=== PATIENT | male | born 1990 | race Two or more races ===

== ENCOUNTER 2022-05-21 10:01 | Emergency (ER) | payer OTHER, SELFPAY ==
[2022-05-21 10:05] VITALS: BP 131/74; PULSE 68; RESP 16; TEMP 36.7; O2SAT 100; BMI 21.7
--- NOTE | 2022-05-21 10:36 | ED_ITS ---
HPI - Wound/Laceration General Chief Complaint: Wound/Laceration Stated Complaint: Ear lac/Work inj Time Seen by Provider: 05/21/22 10:09 Source: patient Mode of arrival: ambulatory Limitations: no limitations History of Present Illness HPI narrative: 31-year-old male previously healthy here with laceration to the right ear. Patient reports he was working. 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 Patient tells me that he tripped and the hook caught his right ear and the patient fell down with all of his weight causing the hook to rip his right ear. Tetanus status unknown. No head injury or loss of consciousness Related Data Allergies Allergy/AdvReac Type Severity Reaction Status Date / Time No Known Allergies Allergy Verified 05/21/22 10:04 Review of Systems Review of Systems: Yes all other systems are reviewed and are negative Constitutional: Constitutional: Reports no additional constitutional complaints, Denies body ache(s), Denies chills, Denies fever(s), Denies headache(s) and Denies weakness Eyes: Eyes: Reports no additional eye complaints and Denies change in vision ENT: Reports system reviewed and no additional complaints, except as documented, Denies dizziness, Denies headache(s), Denies nasal congestion, Denies nasal discharge and Denies neck pain Cardiovascular: Cardiovascular: Reports no additional cardiovascular complaints, Denies chest pain, Denies leg edema and Denies dyspnea Respiratory: Respiratory: Reports no additional respiratory complaints, Denies cough and Denies dyspnea Gastrointestinal: Gastrointestinal: Reports no additional gastrointestinal complaints, Denies abdominal pain, Denies diarrhea, Denies nausea and Denies vomiting Genitourinary: Genitourinary: Denies urinary incontinence Musculoskeletal: Musculoskeletal: Reports no additional musculoskeletal complaints, Denies back pain, Denies arthralgias, Denies joint swelling, Denies neck pain, Denies numbness and Denies tingling Integumentary/Breasts: Skin/Breast: Reports system reviewed and no additional complaints, except as docu and Denies rash Neurologic: Reports system reviewed and no additional complaints, except as documented, Denies Abnormal speech present, Denies dizziness, Denies headache(s), Denies numbness, Denies tingling and Denies weakness [facility] Past Medical History Attestation statement: The following information was validated with the patient. Source: old records reviewed and nursing notes reviewed Social History Social History Advance Directives: No Advance Directives Information Provided: No Physical Exam Vital Signs: Vital Signs: Last Vital Signs Temp 98.1 F 05/21/22 10:05 Pulse 68 05/21/22 10:05 Resp 16 05/21/22 10:05 BP 131/74 05/21/22 10:05 Pulse Ox 100 05/21/22 10:05 O2 Del Method 05/21/22 10:05 BMI result Body Mass Index 21.7 Const: General: cooperative, healthy appearing, comfortable and no acute distress Orientation/consciousness: patient oriented x3 Limitations: no limitations HEENT: Head: Yes normal to inspection Ears: hearing grossly normal bilaterally Outer ear/TM images: 1. Laceration with cartilage involved. Laceration is not through and through 5cm 2. 2cm through the pinna General nose exam: Normal external nose present Face and sinus: Yes normal facial exam Mouth: Normal oral and palatal mucosa present Throat: Yes posterior oropharynx normal Eyes: General: appearance normal, both eyes and all related structures Pupils: Equal, round and reactive pupils present Neck: Neck: Yes normal visual inspection Chest: Chest palpation & inspection: normal inspection of the chest Resp: Effort & Inspection: normal respiratory effort Auscultation: clear to auscultation bilaterally Cardio: Rate: regular rate Rhythm: regular rhythm Peripheral pulses: Peripheral pulses 2+ throughout GI: Inspection: Yes normal to inspection Palpation (GI): Soft to palpation and nontender Auscultation: normal bowel sounds Back/Spine/Pelvis: Thoracic/Lumbar Spine: thoracic and lumbar spine normal to inspection Skin: General skin exam: no rashes or lesions noted Neuro: General: patient oriented x3, no focal motor deficits and normal s ensation to monofilament Cranial nerves: Yes Equal, round and reactive pupils present Cognition (Neuro): normal cognition Speech: No Abnormal speech present Gait exam (Neuro): Normal gait present Motor exam (neuro): 5/5 motor strength present throughout Extrem: General: Yes normal to inspection Course Course Course Narrative: The auricular nerve block was performed by Dr. Lauren. Wound was repaired w/ Nataly FAIR. See procedure note Bleeding was controlled on discharge. No auricular hematoma noted. Reviewed wound care at home. Reviewed worrisome signs and symptoms when to return to the emergency room. Comfortable plan for discharge home. Medications Administered Discontinued Medications Generic Name Dose Route Start Last Admin Trade Name Rajni PRN Reason Stop Dose Admin Diphtheria/Tetanus/Acell Pertussis 0.5 ml 05/21/22 10:20 05/21/22 10:41 Diphth,Pertus(Acell),Tet Adult 0.5 Ml Syringe IM 05/21/22 10:21 0.5 ml .ONCE ONE Administration Lidocaine HCl 2 ml 05/21/22 10:20 05/21/22 10:42 Lidocaine Hcl 1 % Mpf 2 Ml Vial INFILTRATI 05/21/22 10:21 2 ml ONCE ONE Administration MDM - Wound/Laceration MDM Narrative Medical decision making narrative: 31-year-old male here with laceration to the right ear which occurred while working. See procedure note for wound repair. Will require auricular block. Give tetanus Medical Records Attestation: I reviewed the patient's medical records. Lab Data Attestation: I reviewed the patient's lab results. Procedures Laceration Laceration 1: Site: other (ear) Side (If applicable): right Size (cm): 7 Description: linear Depth: simple, single layer Local Anesthetic: other anesthetic (auricular block) Amount of anesthesia used (mL): 5 Pre-repair: wound explored and irrigated extensively Skin layer closed with: vicryl Size (cm): 6-0 Number of sutures: 12 Technique: simple, interrupted Nerve Block Nerve Block 1: Time out performed: Yes Amount of anesthesia used (mL): 5 Nerve Blocks: other (auricular ) Procedure Successful: Yes Patient Tolerated Procedure: well Complications: none Discharge Plan Discharge Clinical Impression: Laceration Patient Disposition: Home, Self-Care Instructions: Laceration (ED) Additional Instructions: sutures out in 7 days you have 12 sutures Stand Alone Forms: Work/School Release Interventions: ED Discharge Assessment Last Done: 05/21/22 12:18 Discharge Date/Time: 05/21/22 12:18
[2022-05-21] MEDS: Diphth,Pertus(ACell),Tet Adult 0.5 ML SYRINGE IM (10:41)
[2022-05-21] MEDS: Lidocaine HCl 1 % MPF 2 ML VIAL INFILTRATI (10:42)
--- NOTE | 2022-05-21 12:18 | PC.NURSE ---
pt tolerated sutures well, nad
== END 2022-05-21 12:18 | disposition home or self-care (01) ==
PROVIDERS: Emergency Provider Emergency Medicine
DX: S01.311A Laceration without foreign body of right ear, initial encounter (principal); Y29.XXXA Contact with blunt object, undetermined intent, initial encounter; Y93.9 Activity, unspecified; Y92.9 Unspecified place or not applicable; Y99.9 Unspecified external cause status
CPT/HCPCS: 12014; 90471; 90715; 99282; 99284

== ENCOUNTER 2022-05-28 10:05 | Emergency (ER) | payer OTHER, SELFPAY ==
[2022-05-28 10:29] VITALS: BP 128/71; PULSE 73; RESP 16; TEMP 36.6; O2SAT 99; BMI 21.7
--- NOTE | 2022-05-28 10:51 | ED_ITS ---
HPI - Recheck/Abnormal Lab/Rx General Chief Complaint: Wound/Laceration Stated Complaint: Suture Removal Time Seen by Provider: 05/28/22 10:34 Source: patient Mode of arrival: ambulatory Limitations: no limitations History of Present Illness complaint: suture/staple removal Initial visit (ago): day(s) (7) Initial visit for: laceration Returns today for: staple/stitch removal Symptoms since prior visit: no new symptoms Context: planned re-check Associated symptoms: none Related Data Allergies Allergy/AdvReac Type Severity Reaction Status Date / Time No Known Allergies Allergy Verified 05/21/22 10:04 Review of Systems Review of Systems: Constitutional : No Fever, No Chills, Cardiovascular : No Chest Pain, No SOB Respiratory : No Dyspnea Gastrointestinal : No abdominal pain Musculoskeletal : No Joint Swelling Skin : positive healing skin laceration, No Foreign bodies, No rash, No surrounding erythema Neuro : No Weakness, No Numbness/tingling Psych : No SI/HI/thoughts of self injury Yes all other systems are reviewed and are negative [facility] Past Medical History Attestation statement: The following information was validated with the patient. Source: old records reviewed and nursing notes reviewed Social History Social History Advance Directives: No Physical Exam Vital Signs: Vital Signs: Last Vital Signs Temp 98 F 05/28/22 10:29 Pulse 73 05/28/22 10:29 Resp 16 05/28/22 10:29 BP 128/71 05/28/22 10:29 Pulse Ox 99 05/28/22 10:29 O2 Del Method 05/28/22 10:29 BMI result Body Mass Index 21.7 vital signs have been reviewed as normal and appeared to be correct. Blood pressure normal Heart rate normal. Respiration rate normal. Temperature normal. Oxygen saturation normal. Appearance: Alert. Oriented X3. No acute distress. Head: Normal external exam. Normocephalic. Atraumatic. Eyes: PERRLA. EOMI. Conjunctiva and sclera normal. Eyelids normal. ENT: Pharynx normal. Uvula midline. Moist mucous membranes. Neck: Normal inspection. Neck supple. FROM. CVS: Normal heart rate and rhythm. Respiratory: No respiratory distress. Painless inspiration. Skin: Skin warm and dry. Normal skin color. Normal skin turgor. To the right ear patient has well-healing laceration with [address] with overlying scabbing. No surrounding erythema/streaking/induration/fluctuance or signs of infection noted. No additional rashes/lesions/lacerations noted. Extremities: Extremities exhibit normal range of motion. Extremities nontender. Neuro: Oriented X 3. No motor deficit. No sensory deficit. Reflexes normal. Normal steady gait. No focal neuro deficits noted. Course Course Course Narrative: Patient now status post suture removal. Twelve sutures were removed. No signs of infection. Patient did have some dehiscence otherwise no other complications. Patient tolerated procedure well. Will DC home with instructions return if any new or worsening symptoms to follow up with primary care provider. Patient understands agrees with this plan. MDM - Recheck/Abnormal Lab/Rx Medical Records Attestation: I reviewed the patient's medical records. Discharge Plan Discharge Clinical Impression: Visit for suture removal, Wound dehiscence Patient Disposition: Home, Self-Care Instructions: Stitches Removal (ED) Referrals: Physician,Unknown J [Primary Care Provider] - 2 days (your pcp) Stand Alone Forms: Work/School Release
== END 2022-05-28 11:05 | disposition home or self-care (01) ==
PROVIDERS: Emergency Provider Emergency Medicine
DX: Z48.02 Encounter for removal of sutures (principal)
CPT/HCPCS: 99282; 99283